=== PATIENT | female | born 1945 | race Caucasian/White ===

== ENCOUNTER 2023-07-03 10:03 | Day surgery (SDC) | payer MEDICARE ==
[2023-07-03] MEDS ORDERED: Depo-Medrol 40 MG/ML IM ONE (10:04)
[2023-07-03] MEDS ORDERED: Sodium Chloride 0.9(Preservative Free) 10 ML IJ ONE (10:04)
[2023-07-03] MEDS ORDERED: LIDOCAINE HCL 1% 50 MG/5 ML VL PF IJ ONE (10:04)
[2023-07-03] MEDS ORDERED: DIPRIVAN 200 MG/20 ML IV ONE (12:33)
[2023-07-03] MEDS ORDERED: Lactated Ringers 1,000 ML IV ONE (13:48)
--- NOTE | 2023-07-03 13:50 | XRAY ---
Indication: Lumbar LIA. Intraoperative fluoroscopy provided for 13 seconds. 4 digital spot image submitted for interpretation demonstrates posterior needle tip projecting posterior to lumbosacral junction. Small amount of contrast injected for needle for placement. Correlate with intraoperative findings/report.
--- NOTE | 2023-07-03 14:33 | XRAY ---
13 seconds of fluoroscopy was used in surgery for a lumbar LIA.
== END 2023-07-03 12:46 | disposition home or self-care (01) ==
LOC: SDC-PAIN 10:03
PROVIDERS: ATTEND Psychiatry & Neurology Pain Medicine
DX: M54.16 Radiculopathy, lumbar region (principal)
CPT/HCPCS: 62321; 72100; 77003; J1010; J2001; J2704; Q9966; J1030